=== PATIENT | male | born 1960 | race Caucasian/White ===

== ENCOUNTER 2017-01-29 18:39 | Inpatient (IN) ==
[2017-01-29] MEDS ORDERED: NARCAN IV ONE (19:14)
[2017-01-29] MEDS ORDERED: ZOFRAN IV ONE (19:15)
[2017-01-29 19:24] LABS: ALLEN TEST YES; BE -4.4 mmoll (-3.0-3.0); BLOOD TYPE ARTERIAL; DRAW SITE L RADIAL; METHB 1.2 % (0.0-1.5); O2(CT) 13.1 mL/dL (15.0-23.0); PCO2(98.6) 39 mmHg (35-45); PO2(98.6) 75 mmHg (60-100); SAMPLE BLOOD; SAO2 97.8 % (95.0-100.0); THB 10.1 g/dL (11.5-17.4); pH(98.6) 7.34 (7.35-7.45)
[2017-01-29 19:25] LABS: MODALITY ROOM AIR
[2017-01-29 19:33] LABS: MANUAL DIFF NEEDED? NO
[2017-01-29 19:46] LABS: BASO% 0.7 % (0.0-0.8); EOS% 2.3 % (0.0-10.0); HEMATOCRIT 30.7 % (42.0-52.0); HEMOGLOBIN 10.2 g/dL (14.0-18.0); IMM GRAN# 0.02 X1000 (0.0-0.04); IMM GRAN% 0.2 % (0.0-0.5); LYMPH# 2.02 X1000 (1.2-3.4); LYMPH% 23.6 % (20.5-51.1); MCH 30.1 PG (27-31); MCHC 33.2 g/dL (33-37); MCV 90.6 FL (81-99); MONO# 0.76 X1000 (0.11-0.59); MONO% 8.9 % (1.7-9.3); MPV 9.9 FL (7.4-10.4); NEUT% 64.3 % (42.2-75.2); PLT 321 X1000 (130-400); RBC 3.39 XMIL (4.7-6.1)
[2017-01-29 19:48] LABS: INR 1.04; PTT 26.9 Seconds (22.0-36.0)
[2017-01-29 19:54] LABS: AGAP 14; ALBUMIN 4.2 g/dL (3.5-5.0); ALKALINE PHOSPHATASE 91 U/L (32-122); BUN 11 mg/dL (8-22); CALCIUM 8.9 mg/dL (8.8-10.2); CHLORIDE 107 mmol/L (98-107); CK PROFILE 112 U/L (24-204); COSMO 281; GOT 23 U/L (10-34); GPT 15 U/L (10-44); POTASSIUM 3.9 mmol/L (3.5-5.1); SODIUM 141 mmol/L (136-145); TCO2 20 mmol/L (25-35); TOTAL BILIRUBIN 0.38 mg/dL (0.20-1.00); TOTAL PROTEIN 7.3 g/dL (6.3-8.3)
[2017-01-29] MEDS ORDERED: XYLOCAINE 1%/EPI 1:100,000 INJ ONE (20:26)
[2017-01-29 20:36] LABS: FREE T4 1.39 ng/dL (0.93-1.70)
[2017-01-29 20:38] LABS: URINE CULTURE NEEDED? NO; URINE MICRO REVIEW NEEDED? NO; URINE SOURCE CATH
[2017-01-29 20:50] LABS: UR AMPHETAMINES QUAL NONE DETECTED (NONE DETECT); UR BARBITUATES QUAL NONE DETECTED (NONE DETECT); UR BENZODIAZEPIN QUAL NONE DETECTED (NONE DETECT); UR CANNABINOIDS QUAL NONE DETECTED (NONE DETECT); UR COCAINE QUAL NONE DETECTED (NONE DETECT); UR METHADONE QUAL NONE DETECTED (NONE DETECT); UR OPIATES QUAL NONE DETECTED (NONE DETECT); UR OXYCODONE QUAL NONE DETECTED (NONE DETECT); UR PCP QUAL NONE DETECTED (NONE DETECT)
[2017-01-29 20:52] LABS: BILIRUBIN URINE NEGATIVE (NEGATIVE); BLOOD URINE NEGATIVE (NEGATIVE); COLOR YELLOW; GLUCOSE URINE NEGATIVE (NEGATIVE); LEUKOCYTES URINE NEGATIVE (NEGATIVE); NITRITE URINE NEGATIVE (NEGATIVE); PROTEIN URINE NEGATIVE (NEGATIVE); SP GRAVITY URINE 1.007; TURBIDITY URINE CLEAR (CLEAR); UROBILINOGEN URINE NORMAL (NORMAL)
[2017-01-29 20:53] LABS: UR EPITHELIAL CELLS <10 /HPF (<10); URINE BACTERIA NEGATIVE /HPF; URINE RBC <10 /HPF (<10); URINE WBC <10 /HPF (<10)
--- NOTE | 2017-01-29 21:11 | PROVIDER DOCUMENTATION ---
This chart was entered by Reina Francis Scribe, acting as scribe for Timothy Noonan MD. HPI-Head Injury - General Stated Complaint: brain attack Time Seen by Provider: 01/29/17 18:49 Source: EMS Unable to obtain history due to:: urgency (minimally responsive) Allergies/Adverse Reactions: Patient Allergies Allergy/AdvReac Type Severity Reaction Status Date / Time codeine Allergy Severe Unknown Verified 01/15/17 12:44 Home Medications: Home Medication List Medication Instructions Recorded Confirmed Last Taken Type Gabapentin [Neurontin] 600 mg PO TID 12/23/13 01/15/17 12/23/13 History Hydrocodone/APAP 10 mg/325 mg 1 each PO TID 12/23/13 01/15/17 12/23/13 History [[place]-10] Lisinopril 20 mg PO DAILY 12/23/13 01/15/17 12/23/13 History Solifenacin [Vesicare] 5 mg PO DAILY 12/23/13 01/15/17 12/23/13 History Baclofen 10 mg PO PRN PRN 04/09/15 01/15/17 Unknown History Metoprolol Tartrate 25 mg BID 04/09/15 01/15/17 Unknown History Hydrocodone/APAP 7.5 mg/325 mg 1 each PO Q6H PRN PRN #12 tablet 01/15/17 Unknown Rx [[place]-7.5] Nitroglycerin 0.4 mg SL PRN PRN 01/15/17 01/15/17 Unknown History Omeprazole [Prilosec] 20 mg PO DAILY@0700 01/15/17 01/15/17 Unknown History Promethazine [Phenergan] 25 mg PO Q6H PRN PRN #20 tablet 01/15/17 Unknown Rx - History of Present Illness-Head Injury Nature of Presenting Problem: 56 year old M presents to the ED with a cc of a head injury. Significant other states that pt did not sleep very much last night and when he got up this morning he was staggering around. She states that pt fell and she tried to get him into the bed of the truck and he fell again face first hitting his face. She states that pt has not been really responsive since. She states that pt had something similar last week in [place] and it took him 6 hours to come back around to himself. Pt was just released from the hospital on Friday. Pt was an alcoholic 6 years ago but has not drank since. Head Injury Location: reports: other (facial) Severity: reports: moderate Onset/Duration: reports: just prior to arrival Timing: reports: still present Method of Injury: reports: direct blow Any recent trauma/injury?: reports: major, to head Loss of Consciousness: still comatose (minimally responsive) Modifying Factors: improves with: other (painful stemuli) Locality of Occurance: Other ([facility]) Similar Symptoms Previously?: No Recently seen or treated by another doctor?: No Review of Systems - Adult - REVIEW OF SYSTEMS - ADULT ROS:: unobtainable per condition Constitutional: reports: no symptoms reported Eyes: reports: no symptoms reported Ears, Nose, Mouth & Throat: reports: no symptoms reported Cardiovascular: reports: no symptoms reported Respiratory: reports: no symptoms reported Gastrointestinal: reports: no symptoms reported Genitourinary: reports: no symptoms reported Musculoskeletal: reports: no symptoms reported Integumentary: reports: no symptoms reported Neurological: reports: no symptoms reported Psychiatric: reports: no symptoms reported Endocrine: reports: no symptoms reported Hematologic/Lymphatic: reports: no symptoms reported Allergic/Immunologic: reports: no symptoms reported All Other Systems: Reviewed and Negative Past History - Adult - PAST MEDICAL HISTORY-ADULT Review of Records: reports: Old Records Reviewed, Nursing Assessment Review, Medications Reviewed, Social history reviewed & non-contributory. Physical Exam- Neurological - Physical Exam-Neuro Exam Limited by: pt minimally responsive Initial Vital Signs Reviewed: Yes General Appearance: other (minimally responsive to painful stemuli) Eye Exam: bilateral eye: other (midrange pupils) Head Injury: ecchymosis (left cheek), lacerations (1.5 cm laceration to right jawline) Respiratory: lungs clear, normal breath sounds, no respiratory distress Cardiovascular: bradycardia Abdominal Exam: soft Extremity: other (atromatic). negative: no pedal edema Integumentary: normal color, normal turgor, warm/dry Progress - PLAN OF CARE/RESULTS Progress/Plan/Lab Results: Vital Signs - 8 hr 01/29/17 19:28 01/29/17 19:55 Temperature 97.5 F L Pulse Rate 52 L Respiratory Rate 13 Blood Pressure 104/76 O2 Sat by Pulse Oximetry 97 Laboratory Results - last 24 hr 01/29/17 01/29/17 01/29/17 19:20 19:25 19:25 WBC 8.56 RBC 3.39 L Hgb 10.2 L Hct 30.7 L MCV 90.6 MCH 30.1 MCHC 33.2 RDW Std Deviation 13.5 Plt Count 321 MPV 9.9 Immature Gran % (Auto) 0.2 Neut % (Auto) 64.3 Lymph % (Auto) 23.6 Nance % (Auto) 8.9 Eos % (Auto) 2.3 Baso % (Auto) 0.7 Immature Gran # (Auto) 0.02 Neut # (Auto) 5.50 Lymph # (Auto) 2.02 Nance # (Auto) 0.76 H Eos # (Auto) 0.20 Baso # (Auto) 0.06 PT INR PTT (Actin FS) Specimen Type ARTERIAL Sample Site L RADIAL pH 7.34 L pCO2 39 pO2 75 HCO3 21.4 Base Excess -4.4 L Oxyhemoglobin 91.7 L ABG O2 Sat (Calculated) 13.1 L ABG O2 Saturation 97.8 ABG Carboxyhemoglobin 5.00 H ABG Methemoglobin 1.2 Demond Test YES A-a O2 Difference 26.0 Total Hemoglobin 10.1 L Lactate 0.40 L Blood Gas Modality ROOM AIR FiO2 % 21.0 Sodium Potassium Chloride Carbon Dioxide Anion Gap BUN Creatinine Estimated GFR/1.73 m2 BUN/Creatinine Ratio Glucose Calculated Osmolality Calcium Total Bilirubin AST ALT Alkaline Phosphatase Creatine Kinase Troponin T Total Protein Albumin Globulin Albumin/Globulin Ratio Plasma Lactate Vitamin B12 Folate TSH Free T4 Urine Source Urine Color Urine Turbidity Urine pH Ur Specific [place] Urine Protein Ur Glucose (Stick) Ur Ketones (Stick) Urine Blood Urine Nitrite Urine Bilirubin Urobilinogen Dipstick Urine Leukocytes Urine WBC (Auto) Urine RBC (Auto) U Epithel Cells (Auto) Urine Bacteria (Auto) Urine Opiates Screen Ur Oxycodone Screen Ur Methadone, Qual Ur Barbiturates Screen Ur Phencyclidine Scrn Ur Amphetamines Screen U Benzodiazepines Scrn Urine Cocaine Screen U Cannabinoids Screen Plasma/Serum Ethyl Alc 01/29/17 01/29/17 01/29/17 19:25 19:25 19:25 WBC RBC Hgb Hct MCV MCH MCHC RDW Std Deviation Plt Count MPV Immature Gran % (Auto) Neut % (Auto) Lymph % (Auto) Nance % (Auto) Eos % (Auto) Baso % (Auto) Immature Gran # (Auto) Neut # (Auto) Lymph # (Auto) Nance # (Auto) Eos # (Auto) Baso # (Auto) PT 11.0 INR 1.04 PTT (Actin FS) 26.9 Specimen Type Sample Site pH pCO2 pO2 HCO3 Base Excess Oxyhemoglobin ABG O2 Sat (Calculated) ABG O2 Saturation ABG Carboxyhemoglobin ABG Methemoglobin Demond Test A-a O2 Difference Total Hemoglobin Lactate Blood Gas Modality FiO2 % Sodium 141 Potassium 3.9 Chloride 107 Carbon Dioxide 20 L Anion Gap 14 BUN 11 Creatinine 1.0 Estimated GFR/1.73 m2 > 60 BUN/Creatinine Ratio 11 Glucose 100 Calculated Osmolality 281 Calcium 8.9 Total Bilirubin 0.38 AST 23 ALT 15 Alkaline Phosphatase 91 Creatine Kinase 112 Troponin T Total Protein 7.3 Albumin 4.2 Globulin 3.1 Albumin/Globulin Ratio 1.4 Plasma Lactate 0.4 L Vitamin B12 Folate TSH Free T4 Urine Source Urine Color Urine Turbidity Urine pH Ur Specific [place] Urine Protein Ur Glucose (Stick) Ur Ketones (Stick) Urine Blood Urine Nitrite Urine Bilirubin Urobilinogen Dipstick Urine Leukocytes Urine WBC (Auto) Urine RBC (Auto) U Epithel Cells (Auto) Urine Bacteria (Auto) Urine Opiates Screen Ur Oxycodone Screen Ur Methadone, Qual Ur Barbiturates Screen Ur Phencyclidine Scrn Ur Amphetamines Screen U Benzodiazepines Scrn Urine Cocaine Screen U Cannabinoids Screen Plasma/Serum Ethyl Alc 01/29/17 01/29/17 01/29/17 19:25 19:25 19:25 WBC RBC Hgb Hct MCV MCH MCHC RDW Std Deviation Plt Count MPV Immature Gran % (Auto) Neut % (Auto) Lymph % (Auto) Nance % (Auto) Eos % (Auto) Baso % (Auto) Immature Gran # (Auto) Neut # (Auto) Lymph # (Auto) Nance # (Auto) Eos # (Auto) Baso # (Auto) PT INR PTT (Actin FS) Specimen Type Sample Site pH pCO2 pO2 HCO3 Base Excess Oxyhemoglobin ABG O2 Sat (Calculated) ABG O2 Saturation ABG Carboxyhemoglobin ABG Methemoglobin Demond Test A-a O2 Difference Total Hemoglobin Lactate Blood Gas Modality FiO2 % Sodium Potassium Chloride Carbon Dioxide Anion Gap BUN Creatinine Estimated GFR/1.73 m2 BUN/Creatinine Ratio Glucose Calculated Osmolality Calcium Total Bilirubin AST ALT Alkaline Phosphatase Creatine Kinase Troponin T < 0.010 Total Protein Albumin Globulin Albumin/Globulin Ratio Plasma Lactate Vitamin B12 547 Folate TSH 0.64 Free T4 1.39 Urine Source Urine Color Urine Turbidity Urine pH Ur Specific [place] Urine Protein Ur Glucose (Stick) Ur Ketones (Stick) Urine Blood Urine Nitrite Urine Bilirubin Urobilinogen Dipstick Urine Leukocytes Urine WBC (Auto) Urine RBC (Auto) U Epithel Cells (Auto) Urine Bacteria (Auto) Urine Opiates Screen Ur Oxycodone Screen Ur Methadone, Qual Ur Barbiturates Screen Ur Phencyclidine Scrn Ur Amphetamines Screen U Benzodiazepines Scrn Urine Cocaine Screen U Cannabinoids Screen Plasma/Serum Ethyl Alc 01/29/17 01/29/17 01/29/17 19:25 20:20 20:20 WBC RBC Hgb Hct MCV MCH MCHC RDW Std Deviation Plt Count MPV Immature Gran % (Auto) Neut % (Auto) Lymph % (Auto) Nance % (Auto) Eos % (Auto) Baso % (Auto) Immature Gran # (Auto) Neut # (Auto) Lymph # (Auto) Nance # (Auto) Eos # (Auto) Baso # (Auto) PT INR PTT (Actin FS) Specimen Type Sample Site pH pCO2 pO2 HCO3 Base Excess Oxyhemoglobin ABG O2 Sat (Calculated) ABG O2 Saturation ABG Carboxyhemoglobin ABG Methemoglobin Demond Test A-a O2 Difference Total Hemoglobin Lactate Blood Gas Modality FiO2 % Sodium Potassium Chloride Carbon Dioxide Anion Gap BUN Creatinine Estimated GFR/1.73 m2 BUN/Creatinine Ratio Glucose Calculated Osmolality Calcium Total Bilirubin AST ALT Alkaline Phosphatase Creatine Kinase Troponin T Total Protein Albumin Globulin Albumin/Globulin Ratio Plasma Lactate Vitamin B12 Folate 16.1 TSH Free T4 Urine Source CATH Urine Color YELLOW Urine Turbidity CLEAR Urine pH 6.0 Ur Specific [place] 1.007 Urine Protein NEGATIVE Ur Glucose (Stick) NEGATIVE Ur Ketones (Stick) NEGATIVE Urine Blood NEGATIVE Urine Nitrite NEGATIVE Urine Bilirubin NEGATIVE Urobilinogen Dipstick NORMAL Urine Leukocytes NEGATIVE Urine WBC (Auto) <10 Urine RBC (Auto) <10 U Epithel Cells (Auto) <10 Urine Bacteria (Auto) NEGATIVE Urine Opiates Screen NONE DETECTED Ur Oxycodone Screen NONE DETECTED Ur Methadone, Qual NONE DETECTED Ur Barbiturates Screen NONE DETECTED Ur Phencyclidine Scrn NONE DETECTED Ur Amphetamines Screen NONE DETECTED U Benzodiazepines Scrn NONE DETECTED Urine Cocaine Screen NONE DETECTED U Cannabinoids Screen NONE DETECTED Plasma/Serum Ethyl Alc Orders Category Date Time Status Cardiac Monitoring DIRECTED Care 01/29/17 18:50 Active Finger Stick Blood Sugar (ED) DIRECTED Care 01/29/17 18:50 Active Saline Loc NOW Care 01/29/17 18:50 Active CHEST-PORTABLE [RAD] Stat Exams 01/29/17 18:50 Taken HEAD W/O CONTRAST [CT] Stat Exams 01/29/17 18:40 Taken ABG [RESP] Routine Lab 01/29/17 19:20 Completed ALCOHOL BLOOD Stat Lab 01/29/17 19:25 Completed AMMONIA [CHEM] Stat Lab 01/29/17 20:55 Received CBC WITH ELECTRONIC DIFF [HEME] Stat Lab 01/29/17 19:25 Completed CK PROFILE [SP CHEM] Stat Lab 01/29/17 19:25 Completed COMPREHENSIVE METABOLIC PANEL [CHEM] Stat Lab 01/29/17 19:25 Completed FOLATE Stat Lab 01/29/17 19:25 Completed FREE T4 Stat Lab 01/29/17 19:25 Completed LACTATE, PLASMA [CHEM] Stat Lab 01/29/17 19:25 Completed PROTIME WITH INR [COAG] Stat Lab 01/29/17 19:25 Completed PTT [COAG] Stat Lab 01/29/17 19:25 Completed TROPONIN T Stat Lab 01/29/17 19:25 Completed TSH Stat Lab 01/29/17 19:25 Completed URINALYSIS W/POSS RFLX CULT-1 [URINALYSIS] Stat Lab 01/29/17 20:20 Completed URINE DRUG SCREEN Stat Lab 01/29/17 20:20 Completed VITAMIN B12 Stat Lab 01/29/17 19:25 Completed Lidocaine 1%/Epi 1:100,000 [Xylocaine 1%/Epi 1:100,000] Med 01/29/17 20:26 Discontinued 20 ml INJ NOW ONE Naloxone [Narcan] Med 01/29/17 19:14 Discontinued 2 mg IV NOW ONE Ondansetron [Zofran] Med 01/29/17 19:15 Discontinued 8 mg IV NOW ONE Pulse Oximetry Stat Oth 01/29/17 18:50 Completed EKG [EKG] Stat Ther 01/29/17 18:50 Ordered Result Diagrams: 01/29/17 19:25 01/29/17 19:25 - EKG 1 Time of EKG reading by physician:: 19:56 EKG Read and Signed by:: Timothy Noonan EKG Interpretation (*Must complete 3 of following elements*): Normal Rate: 52 Rhythm: sinus bradycardia with short [place]: normal - XRAY 1 XRAY Study: Chest Impression: Normal XRAY Interpretation: COPD but otherwise normal: Dr. Noonan(ER MD) - CT/MRI 1 CT Study: Head Impression: Normal CT Results: NAD: Dr. King(radiologist) - CONSULTS/PCP/HOSPITALIST Notification #1 *Consult/PCP/Hospitalist*: Dr. Barrow(hospital) Time Discussed: 21:06 Consult Disposition: Will see in ED, Admit Procedures - LACERATION/WOUND REPAIR/FB Right Jaw Wound Length: 1.5 cm Wound's Depth, Shape: linear Anesthetic: 1%, Lidocaine/Xylocaine Suture Size/Type: 6.0, Non-Absorbable, Nylon Number of Sutures: 4 Sterile Dressing Applied?: No Splint Applied?: No Sling Applied?: No Departure - Departure Time of Disposition Decision: 21:11 DIAGNOSIS: Altered mental status, unspecified Qualifiers: Altered mental status type: coma Coma depth: Danny coma 3-8 Coma timing: in the field (EMT or ambulance) Qualified Code(s): R40.2431 - [place] coma scale score 3-8, in the field [EMT or ambulance] Disposition: ADMITTED INPATIENT 09 Certified Medical Emergency: Emergent Condition: Fair Referrals and Follow-Ups: None,PCP [Primary Care Provider] - - Critical Care Note This patient required my direct & personal management of CC.: No This chart was documented by the indicated scribe, (Reina Francis Scribe) and accurately reflects the services I performed and decisions made by me, Timothy Noonan MD, as attested by the provider's signature.
[2017-01-29] MEDS ORDERED: NS 1,000 ML IV ONE (21:28)
[2017-01-29] MEDS ORDERED: NS 2,000 ML ONE (21:29)
[2017-01-29 22:06] LABS: RETIC% 1.18 % (0.8-2.1); RETIC-HE 32.4 PG (28.2-36.6)
--- NOTE | 2017-01-29 23:05 | HISTORY AND PHYSICAL ---
PRIMARY CARE PHYSICIAN: Dr. Diamond Kiser in [place], [place] REASON FOR ADMISSION: Acute confusion and subsequent unresponsiveness. HISTORY OF PRESENT ILLNESS: Mr. Joshua Whitlock is a 56-year-old male with past medical history of hepatitis C, COPD, hypertension, and questionable history of seizures, probably related to alcohol abuse. He was brought in today by his girlfriend who noticed while they were about to board a boat to go fishing, he was staggering all over the place as if he was "drunk". She said when she got close to him, she noticed that he was spaced out and talking out of his head. He kept on staggering al lover the place until he hit his head against the back of their truck. He did not lose any consciousness at that time, but she was very concerned about his overall condition. She got him into the truck and drove him to the hospital. The patient was just recently discharged from a hospital in [place] for a very similar episode of acute confusion, but on this occasion, she witnessed some jerking sensations and thought he may have had "a seizure". She says she brought him to the hospital since 2013 on and off for seizure- like spells and was told that at that time they may have been related to his alcohol withdrawal. The patient has not actively drank anything over the last few years. When she left the hospital in [place] about a week ago, they informed her that he needs to see a neurologist , that they found "something in his brain". On arrival to the ER, the patient was pretty much unresponsive and only responsive to deep sternal rub. When I saw him, he would respond just to light sternal rub and will arouse for about 5-10 seconds and promptly drift off back into somnolence. I was unable to get a direct history from him for that obvious reason. REVIEW OF SYSTEMS: Other than having a few episodes of diarrhea a few days ago and increased use of his albuterol inhaler since he left the hospital, his girlfriend denies any other acute complaints. The only other thing, 2 weeks ago he was put on a new narcotic pain medication according to the girlfriend. List not available. The girlfriend informs me that he has lost about 8 pounds in the last few months and yesterday prior to him getting confused, he complained of pain between his shoulder blades. He also took about 5 Motrin tablets for this. Review of systems very limited due to patient's current clinical cognitive state. ALLERGIES: Codeine. MEDICATIONS: Most recent list is not available, but he was taking baclofen and gabapentin, hydrocodone, lisinopril, metoprolol, nitroglycerin, omeprazole, Phenergan and VESIcare in the past. PAST SURGICAL HISTORY: He has had back surgery. SOCIAL HISTORY: Smokes 1 pack a day. No alcohol or illicit drug use. Lives with his girlfriend. FAMILY HISTORY: Notable for breast and possible colon cancer and heart disease. LABORATORY WORK/IMAGING: CT of the head shows no acute intracranial bleed or mass effect. Chest x-ray reviewed by me shows findings consistent with COPD. No infiltrate noted. No masses noted. Rest of other laboratory work, hemoglobin and hematocrit is 10 and 30. White count 8000, platelets 321,000, with normal differential. Chemistry, other than a bicarb of 20, the rest of his chemistry is normal. His lactate is 0.4. TSH, folate, B12 all normal. Troponin is negative. CK 112. PT PTT, urine drug screen, alcohol levels were all normal. Urinalysis was clear. Blood gas revealed a pH of 7.34, but pCO2 was only 39, PO2 75, bicarb 21. Carboxyhemoglobin 5. This was on room air. PHYSICAL EXAMINATION: GENERAL: Anorexic looking middle-aged man who looks chronically ill. VITAL SIGNS: Pulse rate is 48 to the mid 50s, heart rate 97.5, blood pressure was 80/50. He is 97% on room air. GENERAL: He is pretty much unresponsive, only to sternal rub and only briefly. Unable to verbalize due to the fact that he is unconscious at this time. HEENT: Head is normocephalic, with some degree of bitemporal wasting. No facial asymmetry noted. Eyes, pupils are about 2-3 cm and responsive to light. No nystagmus or eye deviation noted, anicteric and not pale. ENT exam is very limited because patient is obviously unconscious and cannot cooperate with full exam. NECK: Supple. No JVD or carotid bruit. No thyromegaly. CHEST: Clear to auscultation. Good air entry both lung yates. CARDIOVASCULAR: First and second heart sounds heard. No gallops, murmurs, rubs. Rhythm is regular. ABDOMEN: Full, soft, nontender, no hepatosplenomegaly. Bowel sounds are normal. RECTAL: Deferred. EXTREMITIES: No edema clubbing, cyanosis. No abnormal movements noted. Pulses distally in all extremities have good volume and are symmetrical. NEUROLOGICAL: Moves all extremities to sternal rub. SKIN: He has a laceration on the right mandibular area. An area of bruising on his left maxillary area. Otherwise, no rash noted. MUSCULOSKELETAL: Grossly normal. ASSESSMENT: 1. Encephalopathy, etiology yet to be determined. Could be a seizure disorder. Could the patient have some paraneoplastic condition if he has some occult malignancy. Could this be drug induced from the new medication he was started on. We will consult Neurology to tease out the possibility here. Could it also be a chronic effect of his alcoholic drinking causing alcoholic degenerative brain disease. This usually occurs in the cerebellar area and an MRI will be beneficial. I have not ordered any imaging studies for the brain because he recently had an MRI done and we need to get the reports of this. In the interim, we will start patient on a banana bag and check any outstanding trace element deficiencies, like zinc and copper. Also, consider niacin deficiency which can occur in alcoholics present with neurological problems. 2. Bradycardia. This could be due to some other thyroid problems without the use of beta blockers. 3. Hypotension, probably due to intravascular volume depletion and/or antihypertensives. We will hydrate patient accordingly. We will hold antihypertensives. 4. Anemia. Could be due to nutritional deficiency. Cannot rule out occult malignancy. Has a strong family history of malignancies. I have ordered a CT scan of his chest because patient had been using his inhalers more frequently and complained of intrascapular pain of his chest yesterday. Anemia workup was also ordered. 5. Hepatitis C, stable for now. No evidence to suggest any active progression of this condition. 6. Chronic obstructive pulmonary disease. We will order DuoNeb scheduled not because he is actively in respiratory distress, but because this may also help increase his heart rate which is significantly bradycardic. 7. Acidosis. Probably a combination of metabolic and respiratory acidosis. cc: Donnie Barrow MD Unknown Attending, MD DOMINGUEZ
[2017-01-29] MEDS ORDERED: SODIUM CHLORIDE 0.9% INJ ONE (23:08)
[2017-01-29] MEDS ORDERED: TYLENOL PO PRN (23:08)
[2017-01-29] MEDS ORDERED: ZOFRAN IV PRN (23:08)
[2017-01-29] MEDS: NS 1,000 ML IV SCH (23:24)
[2017-01-30 05:26] LABS: MANUAL DIFF NEEDED? NO
[2017-01-30 05:45] LABS: BASO% 0.8 % (0.0-0.8); EOS# 0.13 X1000 (0.0-0.7); EOS% 2.1 % (0.0-10.0); HEMATOCRIT 31.4 % (42.0-52.0); HEMOGLOBIN 10.4 g/dL (14.0-18.0); LYMPH% 30.1 % (20.5-51.1); MCH 30.1 PG (27-31); MCHC 33.1 g/dL (33-37); MONO# 0.68 X1000 (0.11-0.59); MONO% 10.8 % (1.7-9.3); NEUT% 56.2 % (42.2-75.2); PLT 310 X1000 (130-400); RBC 3.45 XMIL (4.7-6.1)
[2017-01-30 05:54] LABS: AGAP 10; ALBUMIN 3.4 g/dL (3.5-5.0); ALKALINE PHOSPHATASE 80 U/L (32-122); BUN 7 mg/dL (8-22); CALCIUM 8.5 mg/dL (8.8-10.2); CHLORIDE 113 mmol/L (98-107); COSMO 282; GOT 19 U/L (10-34); GPT 12 U/L (10-44); POTASSIUM 3.8 mmol/L (3.5-5.1); SODIUM 143 mmol/L (136-145); TCO2 20 mmol/L (25-35); TOTAL BILIRUBIN 0.27 mg/dL (0.20-1.00); TOTAL PROTEIN 6.1 g/dL (6.3-8.3)
[2017-01-30] MEDS: NS 1,000 ML IV SCH ×3 (06:05→21:26)
[2017-01-30] MEDS ORDERED: TORADOL IV ONE (06:32)
--- NOTE | 2017-01-30 07:39 | EKG Report ---
Test Performed on : 01/29/2017 7:56:24 PM Test Reason : NO EKG ORDER Blood Pressure : / mmHG Vent. Rate : 052 BPM Atrial Rate : 052 BPM P-R Int : 110 ms QRS Dur : 092 ms QT Int : 490 ms P-R-T Axes : 072 059 071 degrees QTc Int : 455 ms Sinus bradycardia. with short MT Otherwise normal ECG No previous ECGs available Unconfirmed Result
[2017-01-30] MEDS: DUONEB (A & A) INH SCH ×4 (08:01→23:51)
--- NOTE | 2017-01-30 08:17 | Diag Imaging Result Document ---
PROCEDURE NAME: CT THORAX W/CONTRAST - 01/29/2017 CT OF THE CHEST WITH INTRAVENOUS CONTRAST: FINDINGS: There is COPD as well as apical pleural and parenchymal fibrosis bilaterally. There is bibasilar dependent atelectasis. There is a 5 mm nodule in the posterior costophrenic sulcus of the left lower lobe. There are nonspecific aortopulmonary window nodes. There is some prominence of superior pericardial recesses in the upper mediastinum. There are calcifications in the right hilum. There are also calcifications in the left anterior descending coronary artery. No acute abnormalities are demonstrated in the visualized portion of the abdomen. There is some mucous in the trachea. IMPRESSION: No evidence of acute disease. COPD and granulomatous changes as described. CT followup in 4-6 months is recommended for evaluation of the left lower lobe pulmonary nodule.
--- NOTE | 2017-01-30 08:17 | Diag Imaging Result Document ---
PROCEDURE NAME: HEAD W/O CONTRAST - 01/29/2017 CT OF THE HEAD WITHOUT CONTRAST: FINDINGS: There is no evidence of mass effect, bleed, or abnormal extra-axial fluid collection. Considering differences in technique there has been no significant change since the previous study of 04/09/2015. IMPRESSION: No evidence of acute disease.
--- NOTE | 2017-01-30 08:21 | Diag Imaging Result Document ---
PROCEDURE NAME: CHEST-PORTABLE - 01/29/2017 PORTABLE CHEST X-RAY: COMPARISON: 01/15/2017. FINDINGS: The lungs are normally expanded and clear. Heart size and mediastinal contours are normal. No pneumothorax or pleural effusion. IMPRESSION: Negative exam.
[2017-01-30] MEDS: NEURONTIN PO SCH ×3 (08:23→16:16)
[2017-01-30] MEDS: ATIVAN IV PRN ×4 (08:27→21:24)
[2017-01-30] MEDS: PROTONIX IV SCH (09:28)
[2017-01-30] MEDS: M.V.I.-12 10 ML, FOLIC ACID 1 MG, MAGNESIUM SULFATE 1 GM, THIAMINE 100 MG in NS 1,000 ML IV SCH (09:28)
--- NOTE | 2017-01-30 10:51 | PROGRESS NOTE ---
DATE: 01/30/2017 SUBJECTIVE: The patient was admitted for unresponsiveness and is still not being himself. He does not respond to verbal stimuli, but to painful stimuli he does. OBJECTIVE: Vital Signs: Temperature 96.9 degrees, heart rate 57, respiratory rate 14, blood pressure 109/81, O2 saturation 99% on room air. General examination: This is a malnourished, chronically ill-looking and frail, 56-year-old, male, lying in bed in no acute distress. HEENT: Head is normocephalic, atraumatic. Anicteric sclerae and pale conjunctivae. Mucous membranes moist. Neck: Supple. No JVD noted. No carotid bruits. No lymphadenopathy. No thyromegaly. Cardiovascular exam: S1, S2 heard. No murmurs, gallops, or rubs. Regular rate and rhythm. Respiratory exam: Clear bilaterally to auscultation. No work of breathing or using accessory muscles. Abdomen: Soft, nontender to palpation. Bowel sounds present. No organomegaly. Extremities: No clubbing, cyanosis, or edema. Peripheral pulses present in both legs. Neurological exam: Patient does respond to sternal rub. Pupils are responsive to light and accommodation. No nystagmus or eye deviation noted. Not sure about he moves 4 extremities spontaneously. LABORATORY DATA: White cell count is 6.31, hemoglobin 10.4, hematocrit 31.4, platelets 15. BMP unremarkable. ASSESSMENT AND PLAN: 1. Acute encephalopathy. We are not sure about the etiology of this problem. It could be either a seizure disorder, although on admission it was suspected occult malignancy. CT of the chest to evaluate any cancer did return negative. Patient has history of alcohol abuse, so it could be secondary to chronic damage to the brain secondary to alcohol consumption. Although we know that this patient was admitted in [place] and he got an MRI a few weeks ago, we are going to repeat it considering that his mental status has been getting worse. Also, MRA of neck and brain will be ordered as well with contrast. On admission, it was felt zinc and copper has been ordered to be checked. We will follow those results. 2. Bradycardia. Heart rate is in the 50s, although of course this patient is not possible to evaluate if he is symptomatic or not. At this point, patient's beta-blockers will be held. 3. Anemia. It could be secondary to nutritional deficiency. We have ordered labs that show basically low iron of 50 and also ferritin that was normal is now in the low range at this point. Also we have checked vitamin B 12 which is normal and folate as well. At this point, we will continue providing iron to this patient. 4. Hepatitis C, stable. Ammonia level was checked for suspected hepatic encephalopathy and was normal of 22. 5. Chronic obstructive pulmonary disease. The patient is on DuoNeb as needed. Patient does not seem to be in any exacerbation. cc: Khoi Rahman MD
--- NOTE | 2017-01-30 11:12 | CONSULTATION ---
DATE OF CONSULTATION: 01/30/2017 Mr. Alvarez is 56 years old. He was brought to the hospital with apparent neurologic change. I have reviewed the admission note. The firsthand witness, girlfriend, is not present for history now. There is report that Mr. Alvarez has had episodes raising question of seizure in the last few years. There is report that he had workup for a similar problem in a hospital in [place] very recently. There is report that he seemed "drunk" apparently without ingesting anything that would have produced that appearance and so he was brought to the hospital. I do not have any report that he had definite altered awareness, altered consciousness, unconsciousness. There is no report of focal neurologic feature. Workup here includes noncontrast CT of the head reported to show nothing remarkable and no change compared to 03/30/2015 scan. Lab shows anemia. Urine drug screen was all negative. There is report that home medications include sucralfate, VESIcare, pantoprazole, omeprazole, metoprolol, lisinopril, ipratropium/albuterol inhaler , gabapentin of uncertain dose t.i.d., fluticasone/salmeterol, diclofenac, baclofen. I do not know that he was taking any of these medicines regularly recently. I do not know if there were any recent medication changes. On exam now, he is supine, moving all limbs spontaneously, moving vigorously in response to very minor stimulation including scratching the sole of the foot, very light nail bed pressure. He has full extraocular movement with passive head turning. Pupils react to light. Facial motility seems diminished bilaterally, but symmetric. Tone is equal in the limbs. He was not attentive to formal motor testing. He was not attentive to testing sensation. I did not ask him to stand. Plantar response is silent bilaterally. Reflexes are difficult to concrete rod buster with his spontaneous movement. Head is unremarkable. Neck is supple without meningismus. He is generally thin but I do not see definite focal muscle atrophy or fasciculation. IMPRESSION: Global encephalopathy, uncertain etiology. Appearance is consistent with a postictal state but the timeframe is much longer than would be expected if he had seizures prior to presentation. We can plan an electroencephalogram to make sure he is not having subclinical status epilepticus. Alternatively, he might have a global encephalopathy related to toxic or metabolic problems. His current lab work does not show anything obvious to explain encephalopathy on a metabolic basis. The listed medications would not likely be associated with seizure, either with intoxication or in withdrawal, but I am not certain the medication list is accurate or complete. I will order the electroencephalogram and further plans will depend on that report. Thanks for asking me to see Mr. Alvarez. cc: Irene Bai III, MD [facility]
--- NOTE | 2017-01-30 13:01 | Diag Imaging Result Document ---
PROCEDURE NAME: MRI BRAIN W W/O CONTRAST - 01/30/2017 MRI OF THE BRAIN WITH AND WITHOUT GADOLINIUM: FINDINGS: There is increased FLAIR signal intensity in the posterior right corpus callosum splenium. This does not demonstrate restricted diffusion. Otherwise, there is no evidence of restricted diffusion. There is no evidence of bleed or mass effect. There is no evidence of abnormal gadolinium enhancement. IMPRESSION: Minimal chronic microvascular changes. No evidence of acute disease.
--- NOTE | 2017-01-30 13:30 | Diag Imaging Result Document ---
PROCEDURE NAME: MRA BRAIN W/O CONTRAST - 01/30/2017 MRA OF THE BRAIN: FINDINGS: There is narrowing of the A-1 segment of the left anterior cerebral artery. There may be stenotic lesions present in some of the sylvian branches of the right middle cerebral. No evidence of aneurysm is present. There is some apparent beading in the left posterior cerebral artery which could be associated with vasculitis. IMPRESSION: No evidence of aneurysm. The possibility of atherosclerotic disease or vasculitis particularly affecting the left posterior cerebral artery and left A-1 segment is suggested.
--- NOTE | 2017-01-30 15:25 | EEG REPORT ---
DATE: 01/30/2017 PATIENT LOCATION: [facility] bed 14. EEG NUMBER: [id number]. COMMENT: This is a digitally recorded EEG done portably in the CICU on a 56-year-old patient with poor responsiveness, possible past history of seizure or seizure-like behavior, question of subclinical seizures. FINDINGS: The record is composed of polymorphic and rhythmic slowing across the hemispheres, prominent slowing into the delta range frontally bilaterally and more theta range slowing centrally and posteriorly. There is no sustained posterior dominant rhythm. Hyperventilation was not done. Photic stimulation did not significantly alter the record. There was no variation to correlate with spontaneous drowsing or sleep. INTERPRETATION: Abnormal EEG because of generalized slowing. CORRELATION: The absence of epileptiform discharges on a single EEG does not exclude a clinical diagnosis of seizures, but there is nothing on this record to suggest a seizure as the reason for his poor responsiveness. cc: Irene Bai III, MD
[2017-01-30] MEDS ORDERED: OFIRMEV 1000 MG/ISOTONIC SOLN 1,000 MG/100 ML BOTTLE IV PRN (18:36)
[2017-01-30] MEDS: TORADOL IV PRN (18:48)
[2017-01-31] MEDS: TORADOL IV PRN (00:54)
[2017-01-31] MEDS: NS 1,000 ML IV SCH (03:52)
[2017-01-31 05:36] LABS: MANUAL DIFF NEEDED? NO
[2017-01-31 05:40] LABS: BASO% 0.4 % (0.0-0.8); EOS# 0.09 X1000 (0.0-0.7); EOS% 1.2 % (0.0-10.0); HEMATOCRIT 28.2 % (42.0-52.0); HEMOGLOBIN 9.3 g/dL (14.0-18.0); LYMPH% 20.8 % (20.5-51.1); MCH 30.3 PG (27-31); MCV 91.9 FL (81-99); MONO# 0.59 X1000 (0.11-0.59); MONO% 7.7 % (1.7-9.3); MPV 9.8 FL (7.4-10.4); NEUT% 69.9 % (42.2-75.2); PLT 272 X1000 (130-400); RBC 3.07 XMIL (4.7-6.1)
[2017-01-31 05:57] LABS: AGAP 10; ALBUMIN 3.4 g/dL (3.5-5.0); ALKALINE PHOSPHATASE 73 U/L (32-122); BUN 7 mg/dL (8-22); CALCIUM 8.3 mg/dL (8.8-10.2); CHLORIDE 110 mmol/L (98-107); COSMO 278; GOT 17 U/L (10-34); GPT 11 U/L (10-44); POTASSIUM 3.4 mmol/L (3.5-5.1); SODIUM 141 mmol/L (136-145); TCO2 21 mmol/L (25-35); TOTAL BILIRUBIN 0.36 mg/dL (0.20-1.00); TOTAL PROTEIN 5.9 g/dL (6.3-8.3)
[2017-01-31] MEDS: DUONEB (A & A) INH SCH (07:54)
[2017-01-31] MEDS ORDERED: SODIUM CHLORIDE 0.9% 10 ML ONE (08:07)
--- NOTE | 2017-01-31 08:32 | Diag Imaging Result Document ---
PROCEDURE NAME: MRA NECK W/CONT - 01/30/2017 MRA OF THE NECK: FINDINGS: The common carotid and vertebral arteries are normal in appearance. The internal carotid arteries are normal in appearance. There are no apparent abnormalities in the subclavian arteries or the right brachiocephalic artery. IMPRESSION: No significant abnormality.
[2017-01-31] MEDS: M.V.I.-12 10 ML, FOLIC ACID 1 MG, MAGNESIUM SULFATE 1 GM, THIAMINE 100 MG in NS 1,000 ML IV SCH (08:53)
[2017-01-31] MEDS: PROTONIX IV SCH (08:53)
[2017-01-31] MEDS ORDERED: NEURONTIN PO SCH (09:00)
[2017-01-31 11:16] VITALS: BP 133/88
--- NOTE | 2017-01-31 20:25 | PROGRESS NOTE ---
DATE: 01/31/2017 [facility] BED 14 Mr. Alvarez is awake, alert, attentive, oriented, appropriate, speaking spontaneously. There is no clear focal neurologic finding on limited examination. Neck is supple. History from the patient is that he recalls standing up to urinate and then he had a sense that he was losing consciousness. He apparently collapsed and struck his head. Clinical Courier helped him up and he leaned against the truck seemingly unable to stand and support his weight. He had some shaking movement and seemed to collapse again. He remembers conversation with leather goods ii assembler just a minute or 2 after the initial period of unconsciousness. He remembers being transported to the ambulance pickup site. He has had some similar symptoms in the past but not necessarily or consistently associated with micturition. He has been taking medicine for bladder control for several years with no recent changes. His EEG yesterday showed generalized slowing without epileptiform discharge. He and leather goods ii assembler report he has a Neurology clinic appointment scheduled in [place] coming up soon and I encouraged him to keep that appointment. We discussed options including making no changes, empirically adding medicine for seizure control, repeating EEG, prolonged EEG. Thank you for asking me to see Mr. Alvarez. cc: Irnee Bai III, MD [facility]
--- NOTE | 2017-02-06 19:11 | DISCHARGE SUMMARY ---
ADMISSION DATE: 01/29/2017 DISCHARGE DATE: 01/31/2017 CONSULTATIONS: Irene Bai MD with Neurology. PERTINENT PROCEDURES: 1. Head CT showed no evidence of acute disease. 2. Brain MRI showed minimal chronic microvascular ischemic changes. No evidence of acute disease. 3. Neck MRA showed no significant abnormality. 4. Brain MRA showed no evidence of aneurysm with the possibility of atherosclerotic disease or vasculitis particularly affecting the left posterior cerebral artery and the left A1 segment is suggested. 5. EEG was abnormal because of generalized slowing. DISCHARGE DIAGNOSES: 1. Acute encephalopathy etiology unknown. Resolved. 2. Bradycardia. Beta-blockers were held while in the hospital. 3. Anemia possibly secondary to nutritional deficiency. B12 and folate were normal. Continue with iron supplementation. 4. Hepatitis C stable. The patient's ammonia level was normal at 22. 5. Chronic obstructive pulmonary disease without exacerbation. Continue with home medications. HOSPITAL COURSE: Mr. Joshua Alvarez is a 56-year-old male with past medical history of hepatitis C, COPD, hypertension, questionable history of seizures probably related to alcohol abuse, brought in by his girlfriend who noticed while they were about to board a boat to go fishing he was staggering all over the places as if he was "drunk." She said when she got close to him and she noticed that he was spaced out and talking out of his head. He continued to stagger until he hit his head against the back of a truck. There was no loss of consciousness. She was concerned about his overall condition so she brought him to the ED. He was just discharged from the hospital in [place] for a similar episode of acute confusion but on occasion she witnessed some jerking sensations and thought he may have had a "seizure." She did state back in 2012 she had brought the patient in for on and off seizure spells that they related to alcohol withdrawal. According to her, the patient has not actively drink in over the last few years and she was informed in [place] about a week ago that he needed to see a neurologist as they found "something in his brain." On arrival to the ED the patient was pretty much unresponsive, only responsive to deep sternal rub. A CT of the head showed no acute intracranial bleed or mass effect. Chest x- ray was consistent with COPD. No infiltrates noted. No masses. Hemoglobin and hematocrit was 10 and 30, white count was 8000, lactate was 0.4, TSH, folate and B12 were all normal. Troponins were negative. Urine drug screen as well alcohol levels are all normal. Urinalysis was clear. The patient was admitted for encephalopathy of unknown etiology as well as bradycardia and hypotension. He was hydrated accordingly and his antihypertensives were held. The patient's ammonia level was normal. Hepatitis C appeared stable now with nothing to suggest any acute progression. The patient underwent a brain MRI, MRA and neck MRA with a Neurology consult as well as an EEG, The patient's EEG showed generalized slowing. Brain MRA showed atherosclerotic disease or vasculitis particularly affecting the left posterior cerebral artery and the left A-1 segment. Brain MRI showed minimal chronic microvascular changes. No evidence of acute disease. Neck MRA showed no significant abnormality. The patient spent another day where he did not respond to verbal stimuli but did respond to painful stimuli. The etiology of his acute encephalopathy could have possibly been secondary to a seizure disorder or occult malignancy. They did do a CT of the chest to evaluate any cancer, it returned negative or felt it could be secondary to possible alcohol abuse and/or withdrawal, or secondary to chronic damage to the brain secondary to his alcohol consumption in the past. However on 01/31/2013. The patient was awake, alert, attentive, oriented appropriate and speaking spontaneously. No clear focal neurological finding on his exam. Per his neurologist his girlfriend does report that he has a Neurology Clinic appointment scheduled in [place] coming up soon he has been encouraged to keep that appointment. It was also suggested including making no changes, empirically adding medications for seizure control, a repeat EEG and a prolonged EEG. The patient was discharged from the hospital on 01/31/[address] Vela. VITAL SIGNS AT TIME OF DISCHARGE: Temperature 98 degrees, heart rate 66, respirations were 18, blood pressure is 133/88, O2 is 100% on room air. DISCHARGE MEDICATIONS PER DR. VELA: 1. Baclofen 20 mg p.o. b.i.d. 2. Advair 250/50 Diskus 1 each inhaled b.i.d. 3. Gabapentin 600 mg p.o. t.i.d. 4. Combivent inhaler 4 g inhaled p.r.n. 5. Lopressor 25 mg p.o. b.i.d. 6. Prilosec 20 mg p.o. daily. 7. VESIcare 10 mg p.o. daily. 8. Carafate 1 g p.o. q.6 hours. FOLLOW-UP: The patient will need to follow up with a primary care physician as well as to keep his appointment with the neurologist in [place]. Patient can return to the ED for any worsening of symptoms. Dictated by EDDIE Kahn for Khoi Rahman MD cc: Khoi Rahman MD
== END 2017-01-31 13:50 | disposition home or self-care (01) ==
LOC: EDSEX → ED 18:39 → SUATTDRO 22:16 → 3S 22:16
PROVIDERS: ATTEND Internal Medicine